=== PATIENT | female | born 1985 | race Caucasian/White ===

== ENCOUNTER 2018-01-31 14:36 | Emergency (ER) | payer BC, OTHER ==
[~2018-01-31] VITALS: Ht 170.2 cm; Wt 136.0 kg
[~2018-01-31 14:36] MED LIST: CHOL10002 PO; DOCU-131 PO; IBUP-1222 PO; IBUP-1484 PO; IRON1TAB60 PO; LABE100T6 PO; OXYC-302 PO; PNV91TAB3 PO
[2018-01-31 16:32] LABS: CULTURE INDICATED? YES; MICROSCOPIC INDICATED
[2018-01-31] MEDS ORDERED: ASPI-496 PO (17:22)
[2018-01-31] MEDS ORDERED: DOXY1TAB6 PO (17:22)
[2018-01-31 17:23] VITALS: BP 128/70
== END 2018-01-31 17:36 | disposition home or self-care (01) ==
LOC: ED 17:30
DX: O26.892 Other specified pregnancy related conditions, second trimester (principal); G89.11 Acute pain due to trauma; R10.84 Generalized abdominal pain; O23.12 Infections of bladder in pregnancy, second trimester; O16.2 Unspecified maternal hypertension, second trimester; Z3A.19 19 weeks gestation of pregnancy; V49.49XA Driver injured in collision with other motor vehicles in traffic accident, initial encounter; Y93.89 Activity, other specified; Y92.89 Other specified places as the place of occurrence of the external cause; Y99.8 Other external cause status
CPT/HCPCS: 76700; 76815; 81001; 87086; 99285

== ENCOUNTER 2018-06-26 02:20 | Outpatient (CLI) | payer SELFPAY ==
[~2018-06-26] VITALS: Ht 170.2 cm; Wt 141.4 kg
[~2018-06-26 02:20] MED LIST changes: +ASPI-496 PO; +DOXY1TAB6 PO; +RANI150T23 PO
[2018-06-26 03:26] VITALS: BP 134/57
[2018-06-27] MEDS ORDERED: ACET-76 PO (18:03)
== END 2018-06-26 04:05 | disposition home or self-care (01) ==
LOC: LDOP 02:20
PROVIDERS: ATTEND Pediatrics Neonatal-Perinatal Medicine
DX: O36.8130 Decreased fetal movements, third trimester, not applicable or unspecified (principal); O26.893 Other specified pregnancy related conditions, third trimester; R10.9 Unspecified abdominal pain; Z3A.39 39 weeks gestation of pregnancy
CPT/HCPCS: 59025; 76815; 99211; G0463

== ENCOUNTER 2018-06-27 15:40 | Outpatient (CLI) | payer BC ==
[~2018-06-27] VITALS: Ht 170.2 cm; Wt 140.9 kg
[2018-06-27 16:33] VITALS: BP 129/60
[2018-06-27 16:43] LABS: MICROSCOPIC INDICATED
[2018-06-27 16:51] LABS: CREATININE,URINE RANDOM 44.7 mg/dL
[2018-06-27 17:07] LABS: BASOPHILS # (AUTO) 0.03 x10^3/uL (0-0.1); BASOPHILS % (AUTO) 0 % (0-1); EOSINOPHILS # (AUTO) 0.18 x10^3/uL (0-0.4); EOSINOPHILS % (AUTO) 2 % (1-7); LYMPHOCYTES % (AUTO) 15 % (22-44); MD NO; MEAN CORPUSCULAR HGB CONC 34.5 g/dL (32.4-35.8); MEAN CORPUSCULAR VOLUME 90.1 fL (80-100); MEAN PLATELET VOLUME 9.6 fL (7.4-10.4); MONOCYTES # (AUTO) 0.34 x10^3/uL (0.2-0.8); MONOCYTES % (AUTO) 4 % (2-9); NEUTROPHILS # (AUTO) 6.33 x10^3/uL (1.8-6.8); NEUTROPHILS % (AUTO) 78 % (42-75); PLATELET COUNT 266 x10^3/uL (130-400); RED BLOOD COUNT 3.43 x10^6/uL (3.82-5.3); RED CELL DISTRIBUTION WIDTH 14.3 % (9.6-15.2)
[2018-06-27 17:18] LABS: ALBUMIN 2.3 g/dL (3.4-5.0); ANION GAP 7 mmol/L (5-15); CALCIUM 8.3 mg/dL (8.5-10.1); CHLORIDE 109 mmol/L (98-107)
[2018-06-27 17:23] LABS: ALANINE AMINOTRANSFERASE 24 U/L (12-78); ALKALINE PHOSPHATASE 170 U/L (45-117); BILIRUBIN,TOTAL 0.3 mg/dL (0.2-1.0); CREATININE 0.42 mg/dL (0.55-1.02); TOTAL PROTEIN 6.1 g/dL (6.4-8.2)
[2018-06-27] MEDS ORDERED: ACET-76 PO (18:03)
== END 2018-06-27 18:15 | disposition home or self-care (01) ==
LOC: LDOP 15:40
PROVIDERS: ATTEND Obstetrics & Gynecology
DX: O26.893 Other specified pregnancy related conditions, third trimester (principal); R51 Headache; O90.6 Postpartum mood disturbance; R03.0 Elevated blood-pressure reading, without diagnosis of hypertension
CPT/HCPCS: 36415; 59025; 80053; 81001; 82570; 84156; 84550; 85025; 99211; G0463

== ENCOUNTER 2018-07-05 05:15 | Inpatient (IN) | payer BC, OTHER ==
[~2018-07-05] VITALS: Ht 170.2 cm; Wt 141.3 kg
[~2018-07-05 05:15] MED LIST changes: +ACET-76 PO
[2018-07-05] MEDS ORDERED: LACTATED RINGERS 1,000 ML IV SCH ×3 (05:21→09:23)
[2018-07-05] MEDS ORDERED: OXYTOCIN 30U/ 0.9% NaCL 500ML 500 ML IV SCH (05:21)
[2018-07-05] MEDS ORDERED: METOCLOPRAMIDE 5 MG/ML, 2ML ONE (05:24)
[2018-07-05] MEDS ORDERED: OXYTOCIN 30U/ 0.9% NaCL 500ML 500 ML ONE ×2 (05:24→09:30)
[2018-07-05] MEDS ORDERED: SODIUM CITRATE/CITRIC ACID 30 ML UDC ONE (05:24)
[2018-07-05] MEDS ORDERED: NEWBORN KIT ONE (05:24)
[2018-07-05] MEDS ORDERED: LACTATED RINGERS 1,000 ML IVBOLUS ONE (05:30)
[2018-07-05] MEDS ORDERED: SODIUM CITRATE/CITRIC ACID 30 ML UDC PO ONE (05:30)
[2018-07-05] MEDS ORDERED: METOCLOPRAMIDE 5 MG/ML, 2ML IV ONE (05:30)
[2018-07-05 06:00] LABS: BASOPHILS # (AUTO) 0.02 x10^3/uL (0-0.1); BASOPHILS % (AUTO) 0 % (0-1); EOSINOPHILS # (AUTO) 0.09 x10^3/uL (0-0.4); EOSINOPHILS % (AUTO) 1 % (1-7); LYMPHOCYTES # (AUTO) 1.64 x10^3/uL (1-3.4); LYMPHOCYTES % (AUTO) 17 % (22-44); MD NO; MEAN CORPUSCULAR HEMOGLOBIN 30.8 pg (27.0-34.8); MEAN CORPUSCULAR HGB CONC 34.1 g/dL (32.4-35.8); MEAN CORPUSCULAR VOLUME 90.2 fL (80-100); MEAN PLATELET VOLUME 9.6 fL (7.4-10.4); MONOCYTES # (AUTO) 0.38 x10^3/uL (0.2-0.8); MONOCYTES % (AUTO) 4 % (2-9); NEUTROPHILS # (AUTO) 7.47 x10^3/uL (1.8-6.8); NEUTROPHILS % (AUTO) 78 % (42-75); PLATELET COUNT 279 x10^3/uL (130-400); RED BLOOD COUNT 3.55 x10^6/uL (3.82-5.3); RED CELL DISTRIBUTION WIDTH 14.1 % (9.6-15.2)
[2018-07-05] MEDS ORDERED: OXYTOCIN 10 UNITS/ML, 1ML ONE (07:13)
[2018-07-05] MEDS ORDERED: ONDANSETRON 2MG/ML, 2ML ONE (07:13)
[2018-07-05] MEDS ORDERED: HYDROmorphone 2 MG/ML, 1ML ONE (07:13)
[2018-07-05] MEDS ORDERED: CEFAZOLIN 1,000 MG ONE (07:13)
[2018-07-05] MEDS ORDERED: FENTANYL PF 100 MCG/2ML ONE (07:13)
[2018-07-05] MEDS: LACTATED RINGERS 1,000 ML IV SCH ×2 (09:23→19:23)
[2018-07-05] MEDS: OXYTOCIN 30U/ 0.9% NaCL 500ML 500 ML IV SCH ×2 (09:23→19:23)
[2018-07-05] MEDS ORDERED: METHYLERGONOVINE 0.2 MG/ML IM PRN (09:30)
[2018-07-05] MEDS ORDERED: BISACODYL 10 MG SUPP PR PRN (09:30)
[2018-07-05] MEDS ORDERED: OXYcodone/APAP 5/325MG TABLET PO PRN (09:30)
[2018-07-05] MEDS: PRENATAL VIT/IRON/FA 1 EACH TABLET PO SCH (09:30)
[2018-07-05] MEDS ORDERED: MISOPROSTOL 200 MCG TABLET PO PRN (09:30)
[2018-07-05] MEDS ORDERED: KETOROLAC 30 MG/1 ML ONE (09:52)
[2018-07-05] MEDS: KETOROLAC 30 MG/1 ML IV SCH ×3 (09:57→22:07)
[2018-07-05] MEDS ORDERED: OXYcodone 5 MG/5 ML ORAL.SOL UDC ONE (10:39)
[2018-07-05 10:43] VITALS: BP 119/58
[2018-07-05 11:15] VITALS: BP 125/76
[2018-07-05] MEDS ORDERED: OXYcodone 5 MG/5 ML ORAL.SOL UDC PO PRN (12:00)
[2018-07-05] MEDS: morphine SULFATE 10 MG/ML, 1ML IVPush PRN ×2 (12:47→23:58)
[2018-07-05] MEDS: ONDANSETRON 2MG/ML, 2ML IV PRN (15:38)
[2018-07-05] MEDS: OXYcodone IR 5MG TABLET PO PRN ×2 (16:12→21:09)
[2018-07-05 16:13] VITALS: BP 129/81
[2018-07-05 16:32] LABS: BASOPHILS # (AUTO) 0.01 x10^3/uL (0-0.1); BASOPHILS % (AUTO) 0 % (0-1); EOSINOPHILS # (AUTO) 0.01 x10^3/uL (0-0.4); EOSINOPHILS % (AUTO) 0 % (1-7); LYMPHOCYTES # (AUTO) 1.18 x10^3/uL (1-3.4); LYMPHOCYTES % (AUTO) 13 % (22-44); MD NO; MEAN CORPUSCULAR HEMOGLOBIN 30.3 pg (27.0-34.8); MEAN CORPUSCULAR HGB CONC 33.7 g/dL (32.4-35.8); MEAN CORPUSCULAR VOLUME 89.8 fL (80-100); MEAN PLATELET VOLUME 9.7 fL (7.4-10.4); MONOCYTES # (AUTO) 0.31 x10^3/uL (0.2-0.8); MONOCYTES % (AUTO) 3 % (2-9); NEUTROPHILS # (AUTO) 7.98 x10^3/uL (1.8-6.8); NEUTROPHILS % (AUTO) 84 % (42-75); PLATELET COUNT 243 x10^3/uL (130-400); RED BLOOD COUNT 3.33 x10^6/uL (3.82-5.3); RED CELL DISTRIBUTION WIDTH 14.2 % (9.6-15.2)
[2018-07-05 19:55] VITALS: BP 112/73
[2018-07-06 00:30] VITALS: BP 102/66
[2018-07-06] MEDS: OXYcodone IR 5MG TABLET PO PRN ×6 (02:44→22:43)
[2018-07-06] MEDS: KETOROLAC 30 MG/1 ML IV SCH (04:08)
[2018-07-06 04:15] VITALS: BP 97/62
[2018-07-06] MEDS: LACTATED RINGERS 1,000 ML IV SCH ×2 (05:23→15:23)
[2018-07-06] MEDS: OXYTOCIN 30U/ 0.9% NaCL 500ML 500 ML IV SCH ×2 (05:23→15:23)
[2018-07-06] MEDS: SIMETHICONE 80 MG CHEW TAB PO PRN ×3 (08:10→22:43)
[2018-07-06] MEDS: ONDANSETRON 2MG/ML, 2ML IV PRN (08:17)
[2018-07-06] MEDS ORDERED: ONDANSETRON ODT 4 MG ONE (08:20)
[2018-07-06] MEDS ORDERED: ONDANSETRON ODT 8 MG ONE ×3 (08:20→08:28)
[2018-07-06 08:29] VITALS: BP 130/82
[2018-07-06] MEDS ORDERED: ONDANSETRON ODT 4 MG PO PRN (08:30)
[2018-07-06] MEDS: PRENATAL VIT/IRON/FA 1 EACH TABLET PO SCH (09:31)
[2018-07-06] MEDS: IBUPROFEN 800 MG TABLET PO PRN ×2 (09:31→16:43)
[2018-07-06] MEDS: DOCUSATE 100 MG CAPSULE PO PRN ×2 (09:31→22:43)
[2018-07-06] MEDS ORDERED: ONDANSETRON ODT 8 MG PO ONE (10:00)
[2018-07-06 15:46] VITALS: BP 114/74
[2018-07-06 20:20] VITALS: BP 122/79
[2018-07-07] MEDS: IBUPROFEN 800 MG TABLET PO PRN ×3 (00:57→18:26)
[2018-07-07] MEDS: SIMETHICONE 80 MG CHEW TAB PO PRN ×2 (00:57→17:00)
[2018-07-07] MEDS: PRENATAL VIT/IRON/FA 1 EACH TABLET PO SCH (07:37)
[2018-07-07] MEDS: DOCUSATE 100 MG CAPSULE PO PRN (07:37)
[2018-07-07] MEDS: OXYcodone IR 5MG TABLET PO PRN ×3 (07:37→17:14)
[2018-07-07 07:40] VITALS: BP 129/82
[2018-07-07] MEDS: ENOXAPARIN 40 MG/0.4 ML SQ SCH (12:21)
[2018-07-07 20:00] VITALS: BP 124/78
[2018-07-08] VITALS: BP 133/84
[2018-07-08] MEDS: IBUPROFEN 800 MG TABLET PO PRN ×2 (02:35→10:23)
[2018-07-08 07:40] VITALS: BP 134/82
[2018-07-08] MEDS: DOCUSATE 100 MG CAPSULE PO PRN (07:58)
[2018-07-08] MEDS: PRENATAL VIT/IRON/FA 1 EACH TABLET PO SCH (07:58)
[2018-07-08] MEDS ORDERED: IBUP-1222 PO (09:59)
[2018-07-08] MEDS ORDERED: DOCU-131 PO (09:59)
[2018-07-08] MEDS ORDERED: OXYC-302 PO (09:59)
[2018-07-08] MEDS: ENOXAPARIN 40 MG/0.4 ML SQ SCH (12:00)
== END 2018-07-08 15:15 | disposition home or self-care (01) | DRG 788 ==
LOC: LDIP 05:15 → 2NW 11:10
PROVIDERS: ADMIT Obstetrics & Gynecology; ATTEND Obstetrics & Gynecology
PROC: 10D00Z1 Extraction of Products of Conception, Low, Open Approach (ICD-10-PCS; principal; 2018-07-05)
DX: O36.63X0 Maternal care for excessive fetal growth, third trimester, not applicable or unspecified (principal); O69.81X0 Labor and delivery complicated by cord around neck, without compression, not applicable or unspecified; O48.0 Post-term pregnancy; O34.13 Maternal care for benign tumor of corpus uteri, third trimester; O99.02 Anemia complicating childbirth; D50.9 Iron deficiency anemia, unspecified; D25.9 Leiomyoma of uterus, unspecified; E66.01 Morbid (severe) obesity due to excess calories; F32.9 Major depressive disorder, single episode, unspecified; O99.344 Other mental disorders complicating childbirth; O99.214 Obesity complicating childbirth; F41.9 Anxiety disorder, unspecified; G47.00 Insomnia, unspecified; J45.909 Unspecified asthma, uncomplicated; O99.52 Diseases of the respiratory system complicating childbirth; O64.0XX0 Obstructed labor due to incomplete rotation of fetal head, not applicable or unspecified; Z37.0 Single live birth; Z23 Encounter for immunization; Z3A.40 40 weeks gestation of pregnancy; Z88.2 Allergy status to sulfonamides
CPT/HCPCS: 36415; 71046; 85025; 86850; 86900; 88305; G0378; J0690; J1170; J1650; J1885; J2405; J3010; Q0162; J2270; J2590; J2765; J7120

== ENCOUNTER 2019-01-23 13:55 | Outpatient (CLI) | payer OTHER | END 2019-01-23 23:59 | disposition home or self-care (01) | LOC: CFH 13:55 | PROVIDERS: ATTEND Obstetrics & Gynecology | DX: N64.4 Mastodynia (principal) | CPT/HCPCS: 76642 ==

== ENCOUNTER 2019-04-30 17:54 | Emergency (ER) | payer OTHER ==
[~2019-04-30] VITALS: Ht 170.2 cm; Wt 141.8 kg
[~2019-04-30 17:54] MED LIST changes: -IBUP-1484 PO; +IBUP-1902 PO; +RANI-467 PO; -RANI150T23 PO
[2019-04-30 19:42] LABS: BASOPHILS # (AUTO) 0.02 x10^3/uL (0-0.1); BASOPHILS % (AUTO) 0 % (0-1); EOSINOPHILS # (AUTO) 0.32 x10^3/uL (0-0.4); EOSINOPHILS % (AUTO) 3 % (1-7); LYMPHOCYTES # (AUTO) 2.02 x10^3/uL (1-3.4); LYMPHOCYTES % (AUTO) 17 % (22-44); MD NO; MEAN CORPUSCULAR HGB CONC 33.6 g/dL (32.4-35.8); MEAN CORPUSCULAR VOLUME 86.4 fL (80-100); MEAN PLATELET VOLUME 8.8 fL (7.4-10.4); MONOCYTES % (AUTO) 2 % (2-9); NEUTROPHILS # (AUTO) 9.59 x10^3/uL (1.8-6.8); NEUTROPHILS % (AUTO) 78 % (42-75); PLATELET COUNT 425 x10^3/uL (130-400); RED BLOOD COUNT 4.28 x10^6/uL (3.82-5.3); RED CELL DISTRIBUTION WIDTH 13.1 % (9.6-15.2)
[2019-04-30 19:50] LABS: ALANINE AMINOTRANSFERASE 41 U/L (12-78); ALBUMIN 3.7 g/dL (3.4-5.0); ANION GAP 5 mmol/L (5-15); CALCIUM 8.3 mg/dL (8.5-10.1); CHLORIDE 107 mmol/L (98-107); CREATININE 0.78 mg/dL (0.55-1.02)
[2019-04-30 19:55] LABS: ALKALINE PHOSPHATASE 159 U/L (45-117); BILIRUBIN,TOTAL 0.1 mg/dL (0.2-1.0); TOTAL PROTEIN 8.2 g/dL (6.4-8.2)
[2019-04-30 20:03] LABS: MICROSCOPIC AUTO
[2019-04-30 20:08] LABS: CULTURE INDICATED? NO
[2019-04-30] MEDS ORDERED: KETOROLAC 30 MG/1 ML IM ONE (20:30)
[2019-04-30] MEDS ORDERED: KETOROLAC 60 MG/2 ML ONE (20:39)
[2019-04-30 21:23] VITALS: BP 147/73
== END 2019-04-30 21:53 | disposition home or self-care (01) ==
LOC: ED 21:30
DX: N92.0 Excessive and frequent menstruation with regular cycle (principal); I10 Essential (primary) hypertension
CPT/HCPCS: 36415; 76830; 80053; 81001; 84702; 85025; 96372; 99284; J1885

== ENCOUNTER 2019-05-28 13:33 | Emergency (ER) | payer OTHER ==
[~2019-05-28] VITALS: Ht 170.2 cm; Wt 140.2 kg
--- NOTE | 2019-05-28 14:33 | NUR ---
Pt presents to ED with c/o generalized abdominal pain that "is moving up wards" and nausea without emesis for three days. Pt denies diarrhea and states she had a "normal" BM this morning. Pt denies blood in urine or stool. Pt denies vaginal bleeding. Pt states flank pain and pain with urination. UA obtained and sent to lab. EDMD aware. Pt ambulates with steady gait and balance. Pt resting on gurney connected to NIBP cuff and continous pulse ox monitor. Call light within reach. Pt waiting for EDMD to see. NADN. No other needs expressed at this time.
[2019-05-28 14:58] LABS: BASOPHILS % (AUTO) 0 % (0-1); EOSINOPHILS # (AUTO) 0.01 x10^3/uL (0-0.4); EOSINOPHILS % (AUTO) 0 % (1-7); LYMPHOCYTES # (AUTO) 0.66 x10^3/uL (1-3.4); LYMPHOCYTES % (AUTO) 13 % (22-44); MD NO; MEAN CORPUSCULAR HEMOGLOBIN 29.1 pg (27.0-34.8); MEAN CORPUSCULAR HGB CONC 33.6 g/dL (32.4-35.8); MEAN CORPUSCULAR VOLUME 86.6 fL (80-100); MEAN PLATELET VOLUME 8.9 fL (7.4-10.4); MONOCYTES # (AUTO) 0.29 x10^3/uL (0.2-0.8); MONOCYTES % (AUTO) 6 % (2-9); NEUTROPHILS # (AUTO) 4.26 x10^3/uL (1.8-6.8); NEUTROPHILS % (AUTO) 82 % (42-75); PLATELET COUNT 344 x10^3/uL (130-400); RED BLOOD COUNT 4.33 x10^6/uL (3.82-5.3); RED CELL DISTRIBUTION WIDTH 13.1 % (9.6-15.2)
[2019-05-28] MEDS ORDERED: SODIUM CHLORIDE FLUSH 10ML SYR IVF ONE (15:00)
[2019-05-28] MEDS ORDERED: SODIUM CHLORIDE 0.9% 1,000ML IVBOLUS ONE (15:00)
[2019-05-28] MEDS ORDERED: ONDANSETRON 2MG/ML, 2ML IVPush ONE ×2 (15:00→18:00)
[2019-05-28] MEDS ORDERED: ONDANSETRON 2MG/ML, 2ML ONE ×2 (15:01→17:46)
[2019-05-28] MEDS ORDERED: HYDROmorphone 1 MG/ML, 1ML VIAL ONE ×2 (15:01→18:08)
[2019-05-28 15:09] LABS: ALBUMIN 3.5 g/dL (3.4-5.0); ANION GAP 5 mmol/L (5-15); CHLORIDE 105 mmol/L (98-107)
[2019-05-28 15:12] LABS: MICROSCOPIC NOT IND
[2019-05-28 15:13] LABS: CREATININE 0.61 mg/dL (0.55-1.02)
[2019-05-28] MEDS: HYDROmorphone 2 MG/ML, 1ML IVPush PRN ×2 (15:13→18:11)
[2019-05-28 15:14] LABS: ALANINE AMINOTRANSFERASE 194 U/L (12-78); ALKALINE PHOSPHATASE 239 U/L (45-117); BILIRUBIN,TOTAL 0.4 mg/dL (0.2-1.0); TOTAL PROTEIN 7.8 g/dL (6.4-8.2)
[2019-05-28 15:16] LABS: CULTURE INDICATED? NO
[2019-05-28] MEDS ORDERED: OMNIPAQUE 350 MG/ML, 150 ML BOTTLE ONE (15:42)
[2019-05-28] MEDS ORDERED: MAALOX/HYOSCYAMINE/LIDOCAINE 45 ML BTL ONE (16:27)
[2019-05-28] MEDS ORDERED: MAALOX/HYOSCYAMINE/LIDOCAINE 45 ML BTL PO ONE (16:30)
[2019-05-28] MEDS ORDERED: ALUMINUM/MAG/SIMETHICONE 30 ML UDC ONE (16:39)
--- NOTE | 2019-05-28 16:53 | NUR ---
dr hazel spoke with dr mae
[2019-05-28] MEDS ORDERED: ALUMINUM/MAG/SIMETHICONE 30 ML UDC PO PRN (17:00)
[2019-05-28 17:51] VITALS: BP 145/79
--- NOTE | 2019-05-28 17:53 | NUR ---
Provided medications per EMAR. Pt apprecaitive. NADN. No other needs expressed.
[2019-05-28] MEDS ORDERED: PROMETHAZINE 25 MG/ML, 1ML ONE (18:05)
[2019-05-28] MEDS ORDERED: PROMETHAZINE 25 MG/ML, 1ML IM ONE (18:30)
--- NOTE | 2019-05-28 18:40 | NUR ---
Pt states, "I am feeling much better." Patient given discharge instructions and they have confirmed that they understand the instructions. Patient ambulatory with steady gait. Pt left with Rx, d/c paperwork, referall paperwork, and all personal belongings. Pt states verbal understanding of referral and follow up lab work. NADN. No other needs expressed.
== END 2019-05-28 18:46 | disposition home or self-care (01) ==
LOC: ED 15:39
DX: R10.11 Right upper quadrant pain (principal); R94.5 Abnormal results of liver function studies; I10 Essential (primary) hypertension; Z87.440 Personal history of urinary (tract) infections; Z87.19 Personal history of other diseases of the digestive system
CPT/HCPCS: 36415; 74177; 80053; 80074; 81003; 83605; 83690; 84703; 85025; 96372; 96374; 96375; 96376; 99284; J1170; J2405; J2550; J7030; Q9967

== ENCOUNTER 2020-02-18 16:29 | Emergency (ER) | payer OTHER ==
[~2020-02-18] VITALS: Ht 170.2 cm; Wt 138.5 kg
[2020-02-18] MEDS ORDERED: SODIUM CHLORIDE 0.9% 1,000ML IVBOLUS ONE (17:30)
[2020-02-18] MEDS ORDERED: MORPHINE SULFATE 4 MG/ML, 1ML ONE ×2 (17:30→18:51)
[2020-02-18] MEDS ORDERED: PROMETHAZINE 25 MG/ML, 1ML IM ONE (17:30)
[2020-02-18] MEDS ORDERED: ONDANSETRON 2MG/ML, 2ML IVPush ONE (17:30)
[2020-02-18] MEDS ORDERED: PROMETHAZINE 25 MG/ML, 1ML ONE (17:30)
[2020-02-18] MEDS ORDERED: ONDANSETRON 2MG/ML, 2ML ONE (17:30)
[2020-02-18] MEDS ORDERED: SODIUM CHLORIDE FLUSH 10ML SYR IVF ONE (17:30)
[2020-02-18] MEDS: MORPHINE SULFATE 4 MG/ML, 1ML IVPush PRN ×2 (17:37→18:54)
[2020-02-18 17:39] LABS: BASOPHILS # (AUTO) 0.01 x10^3/uL (0-0.1); BASOPHILS % (AUTO) 0 % (0-1); EOSINOPHILS # (AUTO) 0.07 x10^3/uL (0-0.4); EOSINOPHILS % (AUTO) 1 % (1-7); LYMPHOCYTES # (AUTO) 0.57 x10^3/uL (1-3.4); LYMPHOCYTES % (AUTO) 5 % (22-44); MD NO; MEAN CORPUSCULAR HEMOGLOBIN 24.9 pg (27.0-34.8); MEAN CORPUSCULAR HGB CONC 32.3 g/dL (32.4-35.8); MEAN CORPUSCULAR VOLUME 77.2 fL (80-100); MEAN PLATELET VOLUME 8.9 fL (7.4-10.4); MONOCYTES # (AUTO) 0.19 x10^3/uL (0.2-0.8); MONOCYTES % (AUTO) 2 % (2-9); NEUTROPHILS # (AUTO) 9.75 x10^3/uL (1.8-6.8); NEUTROPHILS % (AUTO) 92 % (42-75); PLATELET COUNT 376 x10^3/uL (130-400); RED BLOOD COUNT 4.44 x10^6/uL (3.82-5.3); RED CELL DISTRIBUTION WIDTH 15.6 % (9.6-15.2)
[2020-02-18 17:58] LABS: ALANINE AMINOTRANSFERASE 33 U/L (12-78); ALBUMIN 3.5 g/dL (3.4-5.0); ANION GAP 7 mmol/L (5-15); CALCIUM 8.4 mg/dL (8.5-10.1); CHLORIDE 109 mmol/L (98-107); CREATININE 0.61 mg/dL (0.55-1.02)
[2020-02-18 18:02] LABS: ALKALINE PHOSPHATASE 140 U/L (45-117); BILIRUBIN,TOTAL 0.2 mg/dL (0.2-1.0); TOTAL PROTEIN 7.5 g/dL (6.4-8.2)
[2020-02-18 18:54] VITALS: BP 143/87
[2020-02-18 19:03] LABS: MICROSCOPIC INDICATED
== END 2020-02-18 20:08 | disposition home or self-care (01) ==
LOC: ED 18:34
DX: N30.00 Acute cystitis without hematuria (principal); R10.11 Right upper quadrant pain; R11.2 Nausea with vomiting, unspecified; Z90.49 Acquired absence of other specified parts of digestive tract
CPT/HCPCS: 36415; 74176; 80053; 81001; 83690; 84703; 85025; 87086; 96361; 96372; 96374; 96375; 96376; 99285; J2270; J2405; J2550; J7030

== ENCOUNTER 2020-04-14 15:08 | Emergency (ER) | payer OTHER ==
[~2020-04-14] VITALS: Ht 170.2 cm; Wt 140.8 kg
--- NOTE | 2020-04-14 15:35 | NUR ---
ERP IN TO SEE PT.
[2020-04-14] MEDS ORDERED: ASPIRIN 81 MG TABLET CHEW ONE (15:46)
--- NOTE | 2020-04-14 15:54 | NUR ---
PT PLACED ON HEART, BP, PULSE OX MONITORING. PT RATES CHEST DISCOMFORT "HEAVINESS" AT 4/10. PT STATES HX OF PALPITATIONS PREVIOUSLY FOLLOWING FLU SHOT. PT HAD FLU SHOT ON WED. ASA GIVEN PER ERP ORDER. CALL LIGHT WITHIN REACH. PT UPDATED ON POC.
[2020-04-14] MEDS ORDERED: ASPIRIN 81 MG TABLET CHEW PO ONE (16:00)
[2020-04-14 16:12] LABS: BASOPHILS % (AUTO) 1 % (0-1); EOSINOPHILS % (AUTO) 1 % (1-7); LYMPHOCYTES % (AUTO) 25 % (22-44); MEAN CORPUSCULAR HEMOGLOBIN 23.9 pg (27.0-34.8); MEAN CORPUSCULAR HGB CONC 32.4 g/dL (32.4-35.8); MEAN PLATELET VOLUME 8.7 fL (7.4-10.4); MONOCYTES % (AUTO) 5 % (2-9); NEUTROPHILS % (AUTO) 68 % (42-75); PLATELET COUNT 385 x10^3/uL (130-400); RED BLOOD COUNT 4.12 x10^6/uL (3.82-5.3); RED CELL DISTRIBUTION WIDTH 16.4 % (9.6-15.2)
[2020-04-14 16:14] LABS: MD NO
[2020-04-14 16:22] LABS: ALANINE AMINOTRANSFERASE 32 U/L (12-78); ALBUMIN 3.4 g/dL (3.4-5.0); ANION GAP 5 mmol/L (5-15); CALCIUM 8.9 mg/dL (8.5-10.1); CHLORIDE 109 mmol/L (98-107); CREATININE 0.63 mg/dL (0.55-1.02)
[2020-04-14 16:27] LABS: ALKALINE PHOSPHATASE 137 U/L (45-117); BILIRUBIN,TOTAL 0.2 mg/dL (0.2-1.0); TOTAL PROTEIN 7.6 g/dL (6.4-8.2); TROPONIN I < 0.015 ng/mL (0.000-0.045)
[2020-04-14 16:31] VITALS: BP 126/55
--- NOTE | 2020-04-14 16:44 | NUR ---
ALL RESULTS BACK,PT FOR RECHECK
== END 2020-04-14 18:24 | disposition home or self-care (01) ==
LOC: ED 16:04
DX: R00.2 Palpitations (principal); D50.9 Iron deficiency anemia, unspecified; R07.9 Chest pain, unspecified; I10 Essential (primary) hypertension; Z90.49 Acquired absence of other specified parts of digestive tract
CPT/HCPCS: 36415; 71045; 80053; 83690; 84484; 85025; 93005; 99285

== ENCOUNTER → 2020-05-21 | Outpatient (CLI) | payer OTHER | END | disposition home or self-care (01) | LOC: CVU 07:44 | PROVIDERS: ATTEND Internal Medicine Cardiovascular Disease | DX: R00.2 Palpitations (principal); R07.9 Chest pain, unspecified | CPT/HCPCS: 93306; 93356 ==

== ENCOUNTER 2021-02-04 06:20 | Outpatient (CLI) | payer SELFPAY ==
[~2021-02-04] VITALS: Ht 170.2 cm; Wt 145.0 kg
[~2021-02-04 06:20] MED LIST changes: -OXYC-302 PO; +OXYC1TAB14 PO
[2021-02-04 06:57] VITALS: BP 126/61
[2021-02-04 06:59] LABS: MICROSCOPIC INDICATED
[2021-02-04] MEDS ORDERED: MAALOX/HYOSCYAMINE/LIDOCAINE 45 ML BTL PO ONE (08:00)
== END 2021-02-04 09:35 | disposition home or self-care (01) ==
LOC: LDOP 06:20
PROVIDERS: ATTEND Obstetrics & Gynecology
DX: O26.892 Other specified pregnancy related conditions, second trimester (principal); R10.9 Unspecified abdominal pain; Z3A.27 27 weeks gestation of pregnancy
CPT/HCPCS: 76819; 81001; 87086; 87635; 99201; 99211; G0463

== ENCOUNTER 2021-03-08 22:50 | Outpatient (CLI) | payer OTHER ==
[~2021-03-08] VITALS: Ht 170.2 cm; Wt 145.0 kg
[~2021-03-08 22:50] MED LIST changes: +OXYC1TAB12 PO; -OXYC1TAB14 PO
[2021-03-08 23:26] VITALS: BP 131/60
[2021-03-08 23:27] LABS: MICROSCOPIC NOT IND
[2021-03-09] MEDS ORDERED: ONDANSETRON ODT 4 MG ONE (00:28)
[2021-03-09] MEDS ORDERED: ONDANSETRON ODT 4 MG PO ONE (00:30)
== END 2021-03-09 00:33 | disposition home or self-care (01) ==
LOC: LDOP 22:50
PROVIDERS: ATTEND Obstetrics & Gynecology
DX: O09.523 Supervision of elderly multigravida, third trimester (principal); O36.8130 Decreased fetal movements, third trimester, not applicable or unspecified; Z3A.31 31 weeks gestation of pregnancy
CPT/HCPCS: 59025; 81003; 87086; Q0162